=== PATIENT | male | born 1960 | race Caucasian/White ===

== ENCOUNTER 2017-05-29 18:16 | Emergency (ER) | payer BC ==
[2017-05-29 18:54] VITALS: BP 141/81
--- NOTE | 2017-05-29 18:56 | EDM.PDOC ---
ED HPI GENERAL MEDICAL PROBLEM - General Chief Complaint: Laceration Stated Complaint: THUMB IS CUT, [id number] Time Seen by Provider: 05/29/17 18:50 Source of Information: Reports: Patient History Limitations: Reports: No Limitations - History of Present Illness INITIAL COMMENTS - FREE TEXT/NARRATIVE: 57 yo M is here for a cut along his right thumb. He accidentally cut the back of his right thumb about 30 minutes ago while working with a rotator blade ( this was new and there was no rust). He is able to move his thumb but it is painful. He applied pressure and came in for evaluation. He is not up to date on his tetanus vaccination. Onset: Today Right 1-Thumb Pain Score (Numeric/FACES): 9 - Related Data Allergies Allergy/AdvReac Type Severity Reaction Status Date / Time erythromycin base Allergy Stomach Verified 05/29/17 18:49 Upset Home Meds: Home Meds Lidocaine 1% [Xylocaine-MPF 1%] 10 ml SQ ONETIME #1 vial 05/29/17 [Rx] ED ROS GENERAL - Review of Systems Review Of Systems: See Below Constitutional: Reports: No Symptoms HEENT: Reports: No Symptoms Respiratory: Reports: No Symptoms Cardiovascular: Reports: No Symptoms Endocrine: Reports: No Symptoms GI/Abdominal: Reports: No Symptoms : Reports: No Symptoms Musculoskeletal: Reports: No Symptoms Skin: Reports: Wound (right thumb ) Neurological: Reports: No Symptoms ED EXAM, SKIN/RASH Exam: See Below Exam Limited By: No Limitations General Appearance: Alert, Mild Distress Ears: Normal External Exam Nose: Normal Inspection Head: Atraumatic Neck: Supple Respiratory/Chest: No Respiratory Distress Cardiovascular: No Edema, No JVD Extremities: Other (Right thumb (dorsal surface has 2 parallel ~ 1 cm lacerations with skin in between; lacerations extend to the edge of the nailbed) . ) Neurological: Alert, Oriented, Other (Extremities ROM and strength intact. ) ED SKIN PROCEDURES - Laceration/Wound Repair Right Distal Dorsal Finger Lac/Wound length In cm: 1 Appearance: Subcutaneous Distal NVT: Neuro & Vascular Intact, No Tendon Injury Anesthetic Type: Local Local Anesthesia - Lidocaine (Xylocaine): 1% Plain Local Anesthetic Volume: 4cc Skin Prep: Chlorhexidine (Hibiciens), Sterile Drape Closed with: Sutures Suture Size: 4-0 (Vicryl.) # of Sutures: 4 Tetanus Status Addressed: Yes Complications: No Course - Vital Signs Last Recorded V/S: Last Vital Signs Temp 98.2 F 05/29/17 18:53 Pulse 72 05/29/17 18:53 Resp 20 05/29/17 18:53 BP 141/81 H 05/29/17 18:53 Pulse Ox 97 05/29/17 18:53 - Orders/Labs/Meds Orders: Active Orders 24 hr Category Date Time Status Vaccines to be Administered [RC] PER UNIT ROUTINE Care 05/29/17 19:33 Ordered Diphth,Pertuss(Acell),Tet Vac [Adacel] Med 05/29/17 19:33 Once 0.5 ml IM .ONCE ONE Meds: Medications Discontinued Medications Generic Name Dose Route Start Last Admin Trade Name Shyam PRN Reason Stop Dose Admin Bacitracin 1 dose 05/29/17 18:59 05/29/17 19:02 Bacitracin Oint 1 Gm TOP 05/29/17 19:00 1 dose ONETIME ONE Administration Lidocaine HCl 30 ml 05/29/17 19:00 05/29/17 19:02 Xylocaine-Mpf 1% INJECT 05/29/17 19:01 30 ml ONETIME ONE Administration Departure - Departure Time of Disposition: 19:34 Disposition: Home, Self-Care 01 Condition: Fair Clinical Impression: Laceration - Discharge Information Prescriptions: Lidocaine 1% [Xylocaine-MPF 1%] 10 ml SQ ONETIME #1 vial Instructions: Laceration Care, Adult, [id number], Stitches, [place], or Adhesive Wound Closure, [id number] Referrals: Ene August PA [Primary Care Provider] - Forms: ED Department Discharge Additional Instructions: Keep the wound clean and dry. Keep the wound wrapped along with bacitracin ointment for the first 48 hrs. As needed Tylenol/Ibuprofen for pain control. Watch for signs of infections and seek care sooner. Follow up with primary care physician in 14 days for removal of stitches. - My Orders Last 24 Hours: My Active Orders 05/29/17 19:33 Vaccines to be Administered [RC] PER UNIT ROUTINE Diphth,Pertuss(Acell),Tet Vac [Adacel] 0.5 ml IM .ONCE ONE - Assessment/Plan Last 24 Hours: My Active Orders 05/29/17 19:33 Vaccines to be Administered [RC] PER UNIT ROUTINE Diphth,Pertuss(Acell),Tet Vac [Adacel] 0.5 ml IM .ONCE ONE
[2017-05-29] MEDS ORDERED: Bacitracin Oint 1 GM U/D Packet TOP ONE (18:59)
[2017-05-29] MEDS ORDERED: Lidocaine 1% 30 ML SDV INJECT ONE (19:00)
[2017-05-29] MEDS ORDERED: Diphtheria,Pertussis(Acell),Tetanus Vaccine 0.5 ML SDV IM ONE (19:33)
== END 2017-05-29 19:55 | disposition home or self-care (01) ==
LOC: DL.ED 18:16
DX: S61.011A Laceration without foreign body of right thumb without damage to nail, initial encounter (principal); Z23 Encounter for immunization; Z88.1 Allergy status to other antibiotic agents; W45.8XXA Other foreign body or object entering through skin, initial encounter
CPT/HCPCS: 12001; 90471; 90715; 99282; L3999